=== PATIENT | female | born 1980 | race American Indian/Alaskan Native ===

== ENCOUNTER 2016-12-22 13:59 | Emergency (ER) | payer OTHER ==
[2016-12-22 13:59] VITALS: BMI 31.7
[2016-12-22 14:14] VITALS: O2SAT 97
--- NOTE | 2016-12-22 15:28 | C.PDOC ---
History Of Present Illness 36 y/o F p/w painless vaginal bleeding in x 1 day. Denies dysuria , diarrhea, pain, dyspnea. Has appointment with OBGYN 01/06. Time Seen by Provider: 12/22/16 14:58 Chief Complaint (Nursing): Female Genitourinary History Per: Patient History/Exam Limitations: no limitations Onset/Duration Of Symptoms: Days (1) Past Medical History Reviewed: Historical Data, Nursing Documentation, Vital Signs Vital Signs: Last Vital Signs Temp 98.9 F 12/22/16 14:11 Pulse 90 12/22/16 14:11 Resp 16 12/22/16 14:11 BP 104/70 12/22/16 14:11 Pulse Ox 97 12/22/16 16:49 Family History: States: No Known Family Hx - Social History Hx Alcohol Use: No Hx Substance Use: No - Immunization History Hx Tetanus Toxoid Vaccination: No Hx Influenza Vaccination: No Hx Pneumococcal Vaccination: No Review Of Systems Except As Marked, All Systems Reviewed And Found Negative. Constitutional: Negative for: Fever Cardiovascular: Negative for: Chest Pain Gastrointestinal: Negative for: Diarrhea Genitourinary: Positive for: Vaginal Bleeding. Negative for: Dysuria Physical Exam - Physical Exam Additional Physical Exam Comments: Constitutional: No acute distress. Head: Normocephalic. Atraumatic. Eyes: PERRL. ENT: Moist mucous membranes. Neck: Supple. Cardiovascular: Regular rate. Radial pulses 2+ bilaterally. Chest: No tenderness. Respiratory: Clear to auscultation bilaterally. GI: Soft. Nontender. Nondistended. Back: No CVA tenderness. Musculoskeletal: No tenderness or swelling of extremities. Skin: No rash. Neurologic: Alert, no focal deficit. ED Course And Treatment - Laboratory Results Result Diagrams: 12/22/16 15:41 12/22/16 15:41 O2 Sat by Pulse Oximetry: 97 Medical Decision Making Medical Decision Making: PLAN: * US - Transvaginal * CBC * CMP * HCG * Urinalysis US - Transvaginal Indication: vag bleed in , assess cervix Comparison: None available. Technique: Real-time transabdominal pelvic ultrasound was performed. In addition a transvaginal pelvic ultrasound was necessary to better depict pelvic anatomy. Findings: The uterus measures approximately 8.2 x 4.0 x 4.8 cm. Anteverted. Cervix length measures approximately 2.9 cm. Tiny calcification noted at the level of the cervix, nonspecific. There is a single intrauterine fetus present. 4 mm yolk sac. The gestational sac measures 1.4 cm and is compatible with a gestational age of 5 weeks 4 days. The crown-rump length measures 0.4 cm and is compatible with a gestational age of 6 weeks 0 days. There is heart motion which measured 111.9 BPM. The right ovary measures 2.7 x 1.7 x 2.6 cm. The left ovary measures 3.3 x 1.9 x 2.7 cm and contains 1.1 x 1.1 x 1.1 cm cyst. Blood flow was demonstrated to both ovaries. Impression: Live single intrauterine with estimated gestational age 5 weeks 4 days by gestational sac calculation, and 6 weeks 0 days by crown rump length calculation. heart rate 111.9 bpm. 1.1 x 1.1 x 1.1 cm left ovarian cyst Advise an anomaly screen at 16-18 weeks gestational age. Patient in no distress. Labs unremarkable. Rh positive. F/u OBGYN, return to ER for worsening pain, fever, vomiting, dyspnea. Disposition - Disposition Disposition: HOME/ ROUTINE Disposition Time: 16:57 Condition: STABLE Instructions: Threatened Miscarriage (ED) Forms: [employer] (Kazakh) - Clinical Impression Clinical Impression: Vaginal bleeding in - Scribe Statement The provider has reviewed the documentation as recorded by the Otf Munoz Provider Attestation: All medical record entries made by the Dennyibirma were at my direction and personally dictated by me. I have reviewed the chart and agree that the record accurately reflects my personal performance of the history, physical exam, medical decision making, and the department course for this patient. I have also personally directed, reviewed, and agree with the discharge instructions and disposition.
[2016-12-22 15:51] LABS: BASO # 0.1 K/uL (0.0-0.2); EOS # 0.1 K/uL (0.0-0.7); EOS % 1.8 % (0.0-4.0); HEMATOCRIT 37.9 % (34.0-47.0); LYMPH # 1.8 K/uL (1.0-4.3); MEAN CELL VOLUME 82.6 fL (81.0-99.0); MEAN CORPUSCULAR HEMOGLOBIN 26.4 pg (27.0-31.0); MEAN PLATELET VOLUME 8.4 fL (7.2-11.7); MONO # 0.7 K/uL (0.0-0.8); MONO % 10.3 % (0.0-10.0); RED CELL DISTRIBUTION WIDTH 14.6 % (11.5-14.5); WHITE BLOOD COUNT 7.3 K/uL (4.8-10.8)
[2016-12-22 16:08] LABS: CHLORIDE 98 mmol/L (98-107); SODIUM 136 mmol/L (132-148)
[2016-12-22 16:09] LABS: POTASSIUM 3.7 mmol/L (3.6-5.2)
[2016-12-22 16:10] LABS: GFR AFRICAN-AMERICAN > 60
[2016-12-22 16:11] LABS: ALKALINE PHOSPHATASE 72 U/L (38-126); ALT/SGPT 24 U/L (9-52); AST/SGOT 24 U/L (14-36); BILIRUBIN,TOTAL 0.5 mg/dL (0.2-1.3); BLOOD UREA NITROGEN 7 mg/dL (7-17); CALCIUM 9.3 mg/dl (8.6-10.4); CARBON DIOXIDE 22 mmol/L (22-30); GLUCOSE,RANDOM 77 mg/dL (65-105); TOTAL PROTEIN 8.6 g/dL (6.3-8.3)
[2016-12-22 16:28] LABS: RBC URINE < 1 /hpf (0-3); URINE BILIRUBIN NEGATIVE (NEGATIVE); URINE BLOOD NEGATIVE (NEGATIVE); URINE COLOR Colorless (YELLOW); URINE GLUCOSE (UA) NORMAL (Normal); URINE KETONE NEGATIVE (NEGATIVE); URINE LEUKOCYTE ESTERASE NEG Leu/uL (Negative); URINE PROTEIN NEGATIVE (NEGATIVE); URINE UROBILINOGEN NORMAL mg/dL (0.2-1.0); WBC URINE < 1 /hpf (0-5)
--- NOTE | 2016-12-22 16:48 | US ---
Indication: vag bleed in , assess cervix Comparison: None available. Technique: Real-time transabdominal pelvic ultrasound was performed. In addition a transvaginal pelvic ultrasound was necessary to better depict pelvic anatomy. Findings: The uterus measures approximately 8.2 x 4.0 x 4.8 cm. Anteverted. Cervix length measures approximately 2.9 cm. Tiny calcification noted at the level of the cervix, nonspecific. There is a single intrauterine fetus present. 4 mm yolk sac. The gestational sac measures 1.4 cm and is compatible with a gestational age of 5 weeks 4 days. The crown-rump length measures 0.4 cm and is compatible with a gestational age of 6 weeks 0 days. There is heart motion which measured 111.9 BPM. The right ovary measures 2.7 x 1.7 x 2.6 cm. The left ovary measures 3.3 x 1.9 x 2.7 cm and contains 1.1 x 1.1 x 1.1 cm cyst. Blood flow was demonstrated to both ovaries. Impression: Live single intrauterine with estimated gestational age 5 weeks 4 days by gestational sac calculation, and 6 weeks 0 days by crown rump length calculation. heart rate 111.9 bpm. 1.1 x 1.1 x 1.1 cm left ovarian cyst Advise an anomaly screen at 16-18 weeks gestational age.
[2016-12-22 17:16] VITALS: BP 96/62; PULSE 72; RESP 18; TEMP 98
== END 2016-12-22 17:16 | disposition home or self-care (01) ==
LOC: C.ER 13:59
DX: O20.9 Hemorrhage in early pregnancy, unspecified (principal); Z3A.01 Less than 8 weeks gestation of pregnancy

== ENCOUNTER 2017-05-18 09:07 | Inpatient (IN) | payer SELFPAY ==
[2016-12-08 10:39] VITALS: BMI 31.7
[2017-05-18] MEDS: Lactated Ringer's 1,000 ML IV SCH ×2 (12:00→22:03)
--- NOTE | 2017-05-18 12:14 | US ---
OB , limited Comparison: 1st trimester ultrasound performed 12/22/16 Technique: Real-time ultrasound was performed through the pelvis. Findings: There is a single living fetus in breech presentation. Diminished amniotic fluid. Question heterogeneity of the placenta. Anterior placenta. The placenta is not previa. There are no adnexal masses or cysts evident. 1.9 x 1.3 x 1.6 cm probable mid right uterine fibroid. Cervix length measures approximately 2.8 cm. Suspect mild edema near the skull, not adequately visualized on the submitted views. The study was performed for emergent evaluation, and the whole anatomic survey of the fetus was not performed. Measurements and calculations: Fetus has a composite sonographic age of 19 weeks 2 days. This calculation is based on the biparietal diameter, head circumference, abdominal circumference, and femur length. heart motion was not detected during this examination. Impression: Limited study. heart motion was not detected during this examination. Correlate clinically. Diminished amniotic fluid. Suspect mild edema near the skull, not adequately visualized on the submitted views. The study was performed for emergent evaluation, and the whole anatomic survey of the fetus was not performed. Question heterogeneity of the placenta. Fetus in breech presentation. Probable 1.9 cm right mid uterine fibroid.
--- NOTE | 2017-05-18 13:09 | OBADHP ---
Datetime: 05/18/2017 09:58 Admit Comment, IP Provider: CC: Possible demise HPI: Patient is a 37 year old female at 28 weeks with an THOM of 08/10/2017 by LMP and 08/13/2017 by first trimester US. Patient was sent by provider due to intrauterine demise noted on US (), no cardiac activity.. Patient denies abdominal pain, vaginal bleeding/spotting, leakage of fl uid, movement, fever, chills, nausea and vomiting. Patient follows up in the [facility] clinic for lmited care. OB Hx: G1: denies hx of abnormal pap, fibroids, ovaran cyst,s sti Intrapartum issues: abnormal screenign c/w T21, poor care, AMA PMHx: Denies PSHx: Laparoscopy for fallopian tube blockage, Myomectomy FHx: Father ( Thyroid cancer, ), Mother (Diabetes, living) Allergies: NKDA Medications: PNV SHX: deies etoh/tobacc/drugs Social Hx: Unemployed, lives with uncle. Denies formal or current tobacco use, ETOH use and illici t drug use. Physical Examination: See above VS: BP: 102/72 A/P: Patient is 37 year old at 28 weeks of gestation as per US date, who present to the [facility] with complaint of demise as noted on US (05/18/17): 1. Admit 2. VS per protocol 3. Obtain OB limited Ultrasound and BPP 4. Further management as per US results 5. Plans discussed with attending Jenifer Perez DO, PGY-1 agree wth above pt seen and examined . Repat US 18 wk size breech fetus no FHR c/w IUFD US findings diucssed iw patient. Elective inducation dicussed ozzie ardon. R/b/a/i not lmited to bleeding, injfection, blood transfusion d/w patient consent obtained and witnessed admit to L+D npo, ivf cytotec pv iufd panel Pelvic Type - PN: Adequate Extremities - PN: Normal Abdomen - PN: Normal Back - PN: Normal Breast - PN: Not Done Lungs - PN: Normal Heart - PN: Normal Thyroid - PN: Not Done Neurologic - PN: Normal HEENT - PN: Normal General - PN: Normal Presentation-Admit: Breech FHR - Baseline A Provider: -- Comments, ACOG Physical Exam: Gen: NAD Cardio: RRR, Normal S1, S2 Pulm: CTA bilaterally Abd: Soft, non-tender, Gravid Ext: No edema, no clubbing and no cyanosis (Annotations: Data stored by CPN on behalf of user) Gestation - Est Wks by US: 28.0 Vital Signs Provider: Reviewed; Within Normal Limits IP Chief Complaint: Other Dilatation, Provider: 0 Effacement, Provider: 0 Station, Provider: -3 Genitourinary Exam: Normal DTRs - PN: Normal EGA AdmitDate IP: 28.0 IP Adm Impression: Demise IP Admit Plan: Admit to unit; Initiate demise protocol
[2017-05-18 13:17] LABS: BASO % 0.6 % (0.0-2.0); EOS # 0.1 K/uL (0.0-0.7); EOS % 0.7 % (0.0-4.0); HEMOGLOBIN 13.1 g/dL (11.0-16.0); LYMPH # 1.5 K/uL (1.0-4.3); LYMPH % 19.6 % (20.0-40.0); MEAN CELL VOLUME 84.5 fL (81.0-99.0); MEAN CORPUSCULAR HEMOGLOBIN 28.2 pg (27.0-31.0); MEAN CORPUSCULAR HGB CONC 33.3 g/dL (33.0-37.0); MEAN PLATELET VOLUME 8.9 fL (7.2-11.7); MONO # 0.5 K/uL (0.0-0.8); MONO % 5.9 % (0.0-10.0); NEUT # 5.6 K/uL (1.8-7.0); NEUT % 73.2 % (50.0-75.0); RBC 4.66 Mil/uL (3.80-5.20); RED CELL DISTRIBUTION WIDTH 15.1 % (11.5-14.5); WHITE BLOOD COUNT 7.7 K/uL (4.8-10.8)
[2017-05-18 13:25] LABS: SQUAMOUS EPITHIAL < 1 /hpf (0-5); URINE BACTERIA RARE (<OCC); URINE BILIRUBIN NEGATIVE (NEGATIVE); URINE BLOOD NEGATIVE (NEGATIVE); URINE CLARITY Clear (Clear); URINE COLOR Straw (YELLOW); URINE GLUCOSE (UA) NORMAL (Normal); URINE LEUKOCYTE ESTERASE NEG Leu/uL (Negative); URINE NITRATE NEGATIVE (NEGATIVE); URINE PROTEIN NEGATIVE (NEGATIVE); URINE UROBILINOGEN NORMAL mg/dL (0.2-1.0)
[2017-05-18 13:37] LABS: ALBUMIN 4.4 g/dL (3.5-5.0); ALT/SGPT 23 U/L (9-52); AST/SGOT 24 U/L (14-36); BLOOD UREA NITROGEN 5 mg/dL (7-17); GFR AFRICAN-AMERICAN > 60; GFR NON-AFRICAN AMERICAN > 60
[2017-05-18 13:40] LABS: PROTHROMBIN TIME 11.2 SECONDS (9.7-12.2)
--- NOTE | 2017-05-18 16:41 | OBPN ---
Datetime: 05/18/2017 16:37 IP Progress Note Comment: pt seen and examined rpeort feel sad, grieving appropriatley deies any pain, cramping, leaking, fever, chills, nausa, vomiting s/p chaplian evaulation VSS VE: 2/thick posteior a/p for Cytotec Inudctin of labor for IUFD -s/p cytotoec #2 -pain manamgnet prn -IUFD labs -cont curent manamgent Datetime: 05/18/2017 09:58 FHR - Baseline A Provider: -- Gestation - Est Wks by US: 28.0 Presentation-Admit: Breech Vital Signs Provider: Reviewed; Within Normal Limits Dilatation, Provider: 0 Effacement, Provider: 0 Station, Provider: -3
[2017-05-18] MEDS ORDERED: Nalbuphine 20 mg/ml Inj (1 ml) IVP ONE (18:08)
--- NOTE | 2017-05-18 18:13 | OBPN ---
Datetime: 05/18/2017 18:06 IP Progress Note Comment: pt seen and examined reporting some cramping, requesing some pain medician cytotec #3 A/P elective inductin terinatin of -pain manmgent IV -cot curent mangetn
[2017-05-18] MEDS ORDERED: Nalbuphine 20 mg/ml Inj (1 ml) ONE (18:17)
[2017-05-19] MEDS ORDERED: Nalbuphine 20 mg/ml Inj (1 ml) IVP ONE (00:45)
[2017-05-19] MEDS: Lactated Ringer's 1,000 ML IV SCH (05:44)
[2017-05-19] MEDS ORDERED: Nalbuphine 20 mg/ml Inj (1 ml) IVP PRN (06:30)
[2017-05-19] MEDS ORDERED: cefOXitin IV 2 gm in Dextrose 2 GM/50 ML BAG IVPB ONE (13:43)
--- NOTE | 2017-05-19 15:39 | OBDS ---
DELIVERY PERSONNEL Nurse Project Development Manager Certified: N/A Delivery Doctor: Raul Zapata MD Scrub Nurse: N/[facility] Office Manager: Emilie White RN Anesthesiologist: N/[place] Numerical Control Lathe Operator: Kosta/[place] Resident: Sudhir Perez DO MATERNAL INFORMATION Delivery Anesthesia: Local Medications in Delivery: Oxytocin Estimated Blood Loss (ml): 100 Placenta Cultured: No Maternal Complications: None Provider Comments: patient delivered fetus female in breech position placenta spontaneously delivered bleeding minimal patient stable LABOR SUMMARY EDC: 10/16/2017 00:00 No. Babies in Womb: 1 Attempted: No Labor Anesthesia: IV Sedation LABOR INFORMATION Reason for Induction: Demise Cervical Ripening Agents: Cytotec @ (Annotations: 600mcg vaginally, inserted by Dr. Zapata. ) Oxytocin: Augmentation Group B Beta Strep: N/A Antibiotics # of Doses: N/A Antibiotics Time of Last Dose: N/A Steroids Given: None Reason Steroids Not Administered: Not Applicable MEMBRANES Membranes Rupture Method: Spontaneous Amniotic Fluid Color: Heavy Meconium Amniotic Fluid Amount: Moderate Amniotic Fluid Odor: Normal STAGES OF LABOR Stage 3 hrs: 0 Stage 3 min: 37 VAGINAL DELIVERY Episiotomy: None Laceration Extension: N/A Laceration Type: None Initial Vag Sponge Count: 11 Final Vag Sponge Count: 11 Initial Vag Sharps Count: 0 Final Vag Sharps Count: 0 Sponge Count Correct: Yes; Vaginal Sweep Performed Sharps Count Correct: N/A BABY A INFORMATION Infant Delivery Date/Time: 05/19/2017 14:13 Method of Delivery: Vaginal Born in Route : No : N/A Forceps: N/A Vacuum Extraction: N/A Shoulder Dystocia : No SHOULDER DYSTOCIA BABY A Delivery Date/Time: 05/19/2017 14:13 PRESENTATION/POSITION BABY A Presentation: Breech Cephalic Presentation: N/A Vertex Position: N/A Breech Presentation: Complete PLACENTA INFORMATION BABY A Placenta Delivery Time : 05/19/2017 14:50 Placenta Method of Delivery: Spontaneous Placenta Status: Delivered SCORES BABY A Heart Rate 1 min: Absent Resp Effort 1 min: Absent Reflex Irritability 1 min: No Response Muscle Tone 1 min: Flaccid Color 1 min: Blue/Pale Resuscitation Effort 1 min: N/A SCORE 1 MIN: 0 Heart Rate 5 min: Absent Resp Effort 5 min: Absent Reflex Irritability 5 min: No Response Muscle Tone 5 min: Flaccid Color 5 min: Blue/Pale Resuscitation Effort 5 min: N/A SCORE 5 MIN: 0 Heart Rate 10 min: Absent Resp Effort 10 min: Absent Reflex Irritability 10 min: No Response Muscle Tone 10 min: Flaccid Color 10 min: Blue/Pale Resuscitation Effort 10 min: N/A SCORE 10 MIN: 0 INFORMATION BABY A Gestational Age at Delivery: 18.4 Gestational Status: Outcome : AB < 20 Weeks Infant Condition : N/A Sex: Female WEIGHT/LENGTH BABY A Birthweight (gms): N/A Infant Length Inches: N/A CORD INFORMATION BABY A No. Cord Vessels: N/A Nuchal Cord : N/A Nuchal Cord Other: N/A True Knot: N/A Cord pH Baby Arterial: N/A Cord pH Baby Venous: N/A Cord Blood Taken: N/A Banking/Donate Info: N/A Suction: None
[2017-05-19 18:49] VITALS: RESP 20
[2017-05-19] MEDS ORDERED: Oxycodone/Acetaminophen 5/325 mg Tab PO PRN ×2 (19:24)
[2017-05-20 08:02] LABS: BASO # 0.1 K/uL (0.0-0.2); BASO % 0.5 % (0.0-2.0); EOS # 0.1 K/uL (0.0-0.7); EOS % 0.5 % (0.0-4.0); HEMOGLOBIN 10.9 g/dL (11.0-16.0); LYMPH # 1.9 K/uL (1.0-4.3); LYMPH % 15.9 % (20.0-40.0); MEAN CELL VOLUME 84.5 fL (81.0-99.0); MEAN CORPUSCULAR HEMOGLOBIN 27.9 pg (27.0-31.0); MEAN PLATELET VOLUME 8.9 fL (7.2-11.7); MONO % 8.5 % (0.0-10.0); NEUT % 74.6 % (50.0-75.0); RBC 3.9 Mil/uL (3.80-5.20); RED CELL DISTRIBUTION WIDTH 14.8 % (11.5-14.5)
--- NOTE | 2017-05-20 08:13 | OBPPN ---
Datetime: 05/20/2017 08:09 PP Pain Prov: Within normal limits PP Nausea Prov: Denies PP Flatus Prov: Yes PP Abdomen/Uterus Prov: Normal PP Lochia Prov: Normal PP Extremities Prov: Normal PP Comments Phys Exam Prov: fudus below umb ext no edema,no zia PP Impression Prov: Normal progression PP Plan Prov: Discharge PP Progress Note Prov: pt was seen at bed side, pain under control,no n/v, tolerating deit,voiding,m in locha ppd#1 s/p demse at 17week dc home no se motrin prn f/ in 2week Vital Signs Provider PP: Reviewed; Within Normal Limits
--- NOTE | 2017-05-20 08:13 | OBDCSUM ---
Datetime: 05/20/2017 08:10 Discharged to, Provider: Home Follow up at, Provider: 2week Follow up in weeks, Provider: clinic Disch Activity Restrictions: No exercising; No lifting; No driving; Minimize walking; Minimize stair -climbing; No sexual activity; Nothing in vagina - [place], tampons, douche Discharge Comment, Provider: dc home no se motrin prn f/ in 2week Discharge Diagnosis Prov Other: 17week non viable deliver
[2017-05-20 15:15] LABS: CARDIOLIPIN AB (IGA) <11 APL (<=11)
[2017-05-20 16:02] VITALS: BP 102/56; PULSE 83; TEMP 97.8; O2SAT 98
[2017-05-20] MEDS ORDERED: Influenza Vaccine 60 mcg/0.5 mL SYR (4YR UP) IM ONE (17:00)
[2017-05-22 00:36] LABS: TOXOPLASMA GONDII DNA SOURCE BLOOD
== END 2017-05-20 19:15 | disposition home or self-care (01) | DRG 770 ==
LOC: C.EROB 09:07 → C.4D 10:05 → C.4M 05-19 17:00
PROVIDERS: ADMIT Obstetrics & Gynecology; ATTEND Obstetrics & Gynecology
PROC: 10D17ZZ Extraction of Products of Conception, Retained, Via Natural or Artificial Opening (ICD-10-PCS; principal; 2017-05-19)
PROC: 3E0P7VZ Introduction of Hormone into Female Reproductive, Via Natural or Artificial Opening (ICD-10-PCS; 2017-05-19)
DX: O02.1 Missed abortion (principal); O32.1XX0 Maternal care for breech presentation, not applicable or unspecified; O77.0 Labor and delivery complicated by meconium in amniotic fluid